=== PATIENT | female | born 1985 | race Caucasian/White ===

== ENCOUNTER 2019-01-16 00:48 | Inpatient (IN) | payer OTHER ==
[~2019-01-16] VITALS: Ht 167.6 cm; Wt 76.7 kg
== END 2019-01-19 10:19 | disposition home or self-care (01) | DRG 785 ==
LOC: OBS/DEL 00:48 → OB/GYN 08:44 → LDR 08:44 → O/R 13:30 → OB/GYN 16:41
PROVIDERS: ADMIT Obstetrics & Gynecology
PROC: 0UL70ZZ Occlusion of Bilateral Fallopian Tubes, Open Approach (ICD-10-PCS; 2019-01-16)
PROC: 0T9B70Z Drainage of Bladder with Drainage Device, Via Natural or Artificial Opening (ICD-10-PCS; 2019-01-16)
PROC: 4A1HXCZ Monitoring of Products of Conception, Cardiac Rate, External Approach (ICD-10-PCS; 2019-01-16)
PROC: 10D00Z1 Extraction of Products of Conception, Low, Open Approach (ICD-10-PCS; principal; 2019-01-16 13:00)
DX: O34.211 Maternal care for low transverse scar from previous cesarean delivery (principal); O75.82 Onset (spontaneous) of labor after 37 completed weeks of gestation but before 39 completed weeks gestation, with delivery by (planned) cesarean section; O82 Encounter for cesarean delivery without indication; Z3A.37 37 weeks gestation of pregnancy; Z37.0 Single live birth; Z30.2 Encounter for sterilization

== ENCOUNTER 2019-01-29 17:44 | Inpatient (IN) | payer OTHER ==
[~2019-01-29] VITALS: Ht 149.9 cm; Wt 72.6 kg
== END 2019-02-04 13:46 | DRG 776 ==
LOC: ER 17:44 → OB/GYN 01-30 09:15
PROVIDERS: ADMIT Obstetrics & Gynecology
PROC: B020ZZZ Computerized Tomography (CT Scan) of Brain (ICD-10-PCS; principal; 2019-01-30)
DX: O15.2 Eclampsia complicating the puerperium (principal); I67.83 Posterior reversible encephalopathy syndrome